=== PATIENT | female | born 1970 | race Hispanic/Latino ===

== ENCOUNTER 2020-09-28 06:29 | Emergency (ER) | payer MEDICAID | END 2020-09-28 07:14 | disposition left against medical advice (07) | LOC: MW.ED 06:29 | DX: Z53.21 Procedure and treatment not carried out due to patient leaving prior to being seen by health care provider (principal) ==

== ENCOUNTER 2020-09-28 07:29 | Emergency (ER) | payer MEDICAID ==
--- NOTE | 2020-09-28 07:58 | EDM.PDOC ---
ED HPI GENERAL MEDICAL PROBLEM - General Chief Complaint: ENT Problem Stated Complaint: BREATHING PROBLEM Time Seen by Provider: 09/28/20 07:54 Source of Information: Reports: Patient, EMS History Limitations: Reports: No Limitations - History of Present Illness INITIAL COMMENTS - FREE TEXT/NARRATIVE: Patient is a 50-year-old female who presents today for sinus pain. Patient s tates for the past 7 to 10 days she has had a pressure-like feeling in both of her face. Patient complains of runny nose as well. Patient denies any difficulty breathing cough nausea vomiting fevers or chills. Patient has tried [id number] medication without relief. Patient denies any chest pain lightheadedness. Patient heart rate was 50 on vital signs but she denies having any complaints. 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 - Related Data Allergies Allergy/AdvReac Type Severity Reaction Status Date / Time No Known Allergies Allergy Verified 09/28/20 07:40 Home Meds: Home Meds Albuterol Sulfate [Albuterol Sulfate HFA] 8.5 gm INH ASDIRECTED 09/28/20 [History] Amoxicillin/Clavulanate K [Augmentin 875-125 MG] 1 tab PO BID 7 Days #14 tablet 09/28/20 [Rx] Ranitidine HCl [Ranitidine] 150 mg PO DAILY 09/28/20 [History] Past Medical History HEENT History: Reports: None Cardiovascular History: Reports: Hypertension Respiratory History: Reports: None Gastrointestinal History: Reports: None Genitourinary History: Reports: None PHARMACY INFORMATICS SPECIALIST History: Reports: None Musculoskeletal History: Reports: None Neurological History: Reports: None Psychiatric History: Reports: None Endocrine/Metabolic History: Reports: None Insulin Pump Model and Pearler: None Hematologic History: Reports: None Immunologic History: Reports: None Oncologic (Cancer) History: Reports: None Dermatologic History: Reports: None - Infectious Disease History Infectious Disease History: Reports: None - Past Surgical History Head Surgeries/Procedures: Reports: None Social & Family History - Caffeine Use Caffeine Use: Reports: None ED ROS GENERAL - Review of Systems Review Of Systems: See Below Constitutional: Reports: No Symptoms HEENT: Reports: No Symptoms, Sinus Problem Respiratory: Reports: No Symptoms Cardiovascular: Reports: No Symptoms Endocrine: Reports: No Symptoms GI/Abdominal: Reports: No Symptoms : Reports: No Symptoms Musculoskeletal: Reports: No Symptoms Skin: Reports: No Symptoms Neurological: Reports: No Symptoms Psychiatric: Reports: No Symptoms Hematologic/Lymphatic: Reports: No Symptoms Immunologic: Reports: No Symptoms ED EXAM, GENERAL - Physical Exam Exam: See Below Exam Limited By: No Limitations General Appearance: Alert, WD/WN Eye Exam: Bilateral Eye: EOMI, PERRL Respiratory/Chest: No Respiratory Distress, Lungs Clear Cardiovascular: Normal Peripheral Pulses, Bradycardia Peripheral Pulses: 2+: Radial (L), Radial (R) GI/Abdominal: Normal Bowel Sounds, Soft, Non-Tender Neurological: Alert, Oriented #1 Interpretation EKG Date: 09/28/20 Time: 07:47 Rhythm: Other (bradycardia) ST-T: Normal Course - Orders/Labs/Meds Orders: Active Orders 24 hr Category Date Time Status EKG 12 Lead [EKG Documentation Completion] [RC] STAT Care 09/28/20 07:46 Ordered Departure - Departure Time of Disposition: 07:59 Disposition: Home, Self-Care 01 Condition: Good Clinical Impression: Sinusitis - Discharge Information *PRESCRIPTION DRUG MONITORING PROGRAM REVIEWED*: Not Applicable *COPY OF PRESCRIPTION DRUG MONITORING REPORT IN PATIENT GRICELDA: Not Applicable Prescriptions: Amoxicillin/Clavulanate K [Augmentin 875-125 MG] 1 tab PO BID 7 Days #14 tablet Instructions: Sinusitis, Adult, [id number] Referrals: Sharita Figueredo [Primary Care Provider] - Forms: ED Department Discharge Additional Instructions: The following information is given to patients seen in the emergency department who are being discharged to home. This information is to outline your options for follow-up care. We provide all patients seen in our emergency department with a follow-up referral. The need for follow-up, as well as the timing and circumstances, are variable depending upon the specifics of your emergency department visit. If you don't have a primary care physician on staff, we will provide you with a referral. We always advise you to contact your personal physician following an emergency department visit to inform them of the circumstance of the visit and for follow-up with them and/or the need for any referrals to a consulting specialist. The emergency department will also refer you to a specialist when appropriate. This referral assures that you have the opportunity for follow-up care with a specialist. All of these measure are taken in an effort to provide you with optimal care, which includes your follow-up. Under all circumstances we always encourage you to contact your private physician who remains a resource for coordinating your care. When calling for follow-up care, please make the office aware that this follow-up is from your recent emergency room visit. If for any reason you are refused follow-up, please contact the [facility] Emergency Department at and asked to speak to the emergency department charge nurse. Please follow up with your primary care physician. If you do not have a primary care physician, see below: [facility] [address] [place] [id number] You were seen today for possible sinus infection. We sent antibiotics to your pharmacy for possible sinusitis. Your heart rate is also slow but you stated this been the problem in the past and you are not having any symptoms from this slow heart rate. Above we have provided the number for cardiology that you can call and make an appointment which he stated you had a hard time trying to follow-up. Any chest pain syncope or other complaints please return to the ED. - My Orders Last 24 Hours: My Active Orders 09/28/20 07:46 EKG 12 Lead [EKG Documentation Completion] [RC] STAT - Assessment/Plan Last 24 Hours: My Active Orders 09/28/20 07:46 EKG 12 Lead [EKG Documentation Completion] [RC] STAT Plan: Patient is a 50-year-old female who presents today for what seems like sinus problems. Patient has had the symptoms for the past 7 to 10 days. We will send patient home with a course of amoxicillin. Patient is also bradycardic vital signs patient denies any symptoms. We obtain EKG just to make sure. Afterwards patient told us that this is normal rate and was told that she was been trying to follow cardiology but not had time. We will refer patient to cardiology you patient return precautions.
== END 2020-09-28 08:32 | disposition home or self-care (01) ==
LOC: MW.ED 07:29
DX: J32.9 Chronic sinusitis, unspecified (principal); I10 Essential (primary) hypertension
CPT/HCPCS: 93005; 99283; 99283-25

== ENCOUNTER 2021-06-30 12:23 | Emergency (ER) | payer MEDICAID ==
[2021-06-30] MEDS ORDERED: Cephalexin 500 MG Cap PO ONE (14:11)
== END 2021-06-30 14:40 | disposition home or self-care (01) ==
LOC: MW.ED 12:23
DX: K04.7 Periapical abscess without sinus (principal); I10 Essential (primary) hypertension
CPT/HCPCS: 99282; A9270

== ENCOUNTER 2021-12-05 11:49 | Emergency (ER) | payer MEDICAID ==
[2021-12-05] MEDS ORDERED: Lidocaine 2% Viscous Solution 15 ML UD PO ONE (12:16)
[2021-12-05] MEDS ORDERED: Orphenadrine 60 MG/2 ML Inj IM ONE (12:16)
[2021-12-05] MEDS ORDERED: Ketorolac 60 MG/2 ML SDV IM ONE (12:16)
[2021-12-05] MEDS ORDERED: Benzocaine 20% Topical Spray UD MUCMEM ONE (12:16)
== END 2021-12-05 13:04 | disposition home or self-care (01) ==
LOC: MW.ED 11:49
DX: M54.41 Lumbago with sciatica, right side (principal); K02.9 Dental caries, unspecified; I10 Essential (primary) hypertension; Z79.899 Other long term (current) drug therapy
CPT/HCPCS: 96372; 99283; A9270; J1885; J2360

== ENCOUNTER 2022-03-28 11:10 | Emergency (ER) | payer MEDICAID ==
[2022-03-28] MEDS ORDERED: Ketorolac 60 MG/2 ML SDV IM ONE (13:29)
== END 2022-03-28 13:59 | disposition home or self-care (01) ==
LOC: MW.ED 11:10
DX: M25.511 Pain in right shoulder (principal); I10 Essential (primary) hypertension; Z79.899 Other long term (current) drug therapy
CPT/HCPCS: 73030; 93005; 96372; 99283; J1885

== ENCOUNTER 2022-04-25 17:32 | Emergency (ER) | payer MEDICAID ==
[2022-04-25] MEDS ORDERED: Orphenadrine 60 MG/2 ML Inj IM ONE (18:52)
[2022-04-25] MEDS ORDERED: predniSONE 20 MG Tab PO ONE (18:52)
[2022-04-25] MEDS ORDERED: Diazepam 5 MG Tab PO ONE (18:53)
== END 2022-04-25 19:12 | disposition home or self-care (01) ==
LOC: MW.ED 17:32
DX: M54.10 Radiculopathy, site unspecified (principal); M54.2 Cervicalgia; I10 Essential (primary) hypertension; Z79.899 Other long term (current) drug therapy
CPT/HCPCS: 96372; 99283; A9270; J2360

== ENCOUNTER 2022-06-26 10:12 | Emergency (ER) | payer MEDICAID ==
[2022-06-26] MEDS ORDERED: Losartan 50 MG Tab PO ONE (10:32)
[2022-06-26] MEDS ORDERED: Metoclopramide 10 MG/2 ML SDV IVPUSH ONE (10:32)
[2022-06-26] MEDS ORDERED: Ondansetron 4 MG/2 ML SDV IVPUSH ONE (10:32)
[2022-06-26] MEDS ORDERED: diphenhydrAMINE 50 MG/ML SDV IVPUSH ONE (10:32)
[2022-06-26] MEDS ORDERED: Ketorolac 30 MG/ML SDV IVPUSH ONE (10:32)
[2022-06-26] MEDS ORDERED: Sodium Chloride 0.9% 1,000 ML IV SCH (10:45)
[2022-06-26 11:19] LABS: CORONAVIRUS COVID-19 NAA NEGATIVE (NEGATIVE); INFLUENZA A NAA NEGATIVE (NEGATIVE); INFLUENZA B NAA NEGATIVE (NEGATIVE); RESPIRATORY SYNCYTIAL VIR NAA NEGATIVE (NEGATIVE)
[2022-06-26 11:30] LABS: CARBON DIOXIDE,CO2 27.1 mmol/L (21.0-32.0); POTASSIUM,K 3.3 mmol/L (3.5-5.1)
== END 2022-06-26 12:03 | disposition home or self-care (01) ==
LOC: MW.ED 10:12
DX: J32.9 Chronic sinusitis, unspecified (principal); I10 Essential (primary) hypertension; Z79.899 Other long term (current) drug therapy; Z20.822 Contact with and (suspected) exposure to COVID-19
CPT/HCPCS: 0241U; 36415; 71045; 80053; 85025; 93005; 96361; 96374; 96375; 99284; A9270; J1200; J1885; J2405; J2765; J7030; 93010

== ENCOUNTER 2022-10-21 13:48 | Emergency (ER) | payer MEDICAID ==
[2022-10-21] MEDS ORDERED: Ondansetron 4 MG Tab.DIS PO ONE (14:19)
[2022-10-21] MEDS ORDERED: Acetaminophen/oxyCODONE 325-5 MG Tab PO ONE (14:19)
[2022-10-21 14:38] LABS: APPEARANCE,URINE CLEAR; BILIRUBIN,URINE NEGATIVE (NEGATIVE); COLOR,URINE YELLOW; GLUCOSE,URINE NEGATIVE (NEGATIVE); KETONES,URINE NEGATIVE (NEGATIVE); LEUKOCYTE ESTERASE,URINE NEGATIVE (NEGATIVE); NITRITE,URINE NEGATIVE (NEGATIVE); OCCULT BLOOD,URINE MODERATE (NEGATIVE); PROTEIN,URINE NEGATIVE (NEGATIVE); UROBILINOGEN,URINE 0.2 EU/dL (<2.0)
[2022-10-21 14:46] LABS: BACTERIA,URINE RARE (NEGATIVE); EPITHELIAL CELLS,URINE FEW (NONE-FEW); WBC,URINE 0-2 (0-5/HPF)
== END 2022-10-21 15:56 | disposition home or self-care (01) ==
LOC: MW.ED 13:48
DX: M54.42 Lumbago with sciatica, left side (principal); I10 Essential (primary) hypertension; J45.909 Unspecified asthma, uncomplicated; K21.9 Gastro-esophageal reflux disease without esophagitis; Z79.899 Other long term (current) drug therapy
CPT/HCPCS: 72131; 81001; 99284; A9270; 99283

== ENCOUNTER 2022-11-09 14:04 | Emergency (ER) | payer MEDICAID ==
[2022-11-09] MEDS ORDERED: Cyclobenzaprine 10 MG Tab PO ONE (14:59)
[2022-11-09] MEDS ORDERED: Ketorolac 60 MG/2 ML SDV IM ONE (14:59)
[2022-11-09] MEDS ORDERED: Lidocaine 4% 1 each Patch TOP PRN (15:04)
== END 2022-11-09 15:45 | disposition home or self-care (01) ==
LOC: MW.ED 14:04
DX: M54.32 Sciatica, left side (principal); I10 Essential (primary) hypertension; J45.909 Unspecified asthma, uncomplicated; K21.9 Gastro-esophageal reflux disease without esophagitis; Z79.899 Other long term (current) drug therapy
CPT/HCPCS: 96372; 99283; A9270; J1885

== ENCOUNTER 2022-11-21 09:40 | Day surgery (SDC) | payer MEDICAID ==
[~2022-11-21 09:40] MED LIST: Lactated Ringers 1,000 ML IV SCH; Sodium Chloride 0.9% 10 ML Syringe FLUSH PRN; Sodium Chloride 0.9% 2.5 ML Syringe FLUSH PRN; Sodium Chloride 0.9% 20 ML SDV IV PRN
[2022-11-21] MEDS ORDERED: propofoL 50 ML ONE (10:12)
[2022-11-21] MEDS ORDERED: Lidocaine 2% 5 ML SDV ONE (10:16)
[2022-11-21] MEDS ORDERED: fentaNYL 100 MCG/2 ML SDV ONE (10:16)
[2022-11-21] MEDS ORDERED: Propofol 200 MG/20 ML SDV ONE (11:37)
== END 2022-11-21 12:40 | disposition home or self-care (01) ==
LOC: MW.SDS 09:40
PROVIDERS: ATTEND Surgery
DX: K58.1 Irritable bowel syndrome with constipation (principal); K21.9 Gastro-esophageal reflux disease without esophagitis; K63.5 Polyp of colon; K29.50 Unspecified chronic gastritis without bleeding; J45.901 Unspecified asthma with (acute) exacerbation; I10 Essential (primary) hypertension; E55.9 Vitamin D deficiency, unspecified; Z90.49 Acquired absence of other specified parts of digestive tract; Z79.899 Other long term (current) drug therapy; Z87.891 Personal history of nicotine dependence
CPT/HCPCS: 43239; 45380; J2704; J3010; J7120; 00813; J3490

== ENCOUNTER 2023-01-24 01:47 | Emergency (ER) | payer MEDICAID | END 2023-01-24 02:06 | LOC: MW.ED 01:47 | DX: I10 Essential (primary) hypertension (principal); Z02.89 Encounter for other administrative examinations | CPT/HCPCS: 99282; 99283 ==

== ENCOUNTER 2023-03-21 08:35 | Emergency (ER) | payer OTHER, MEDICAID | END 2023-03-21 09:18 | disposition home or self-care (01) | LOC: MW.ED 08:35 | DX: Z04.1 Encounter for examination and observation following transport accident (principal); I10 Essential (primary) hypertension; Z79.899 Other long term (current) drug therapy | CPT/HCPCS: 99282; 99284 ==

== ENCOUNTER 2023-04-29 11:51 | Emergency (ER) | payer SELFPAY ==
[2023-04-29] MEDS ORDERED: Sodium Chloride 0.9% 10 ML Syringe FLUSH PRN (11:54)
[2023-04-29] MEDS ORDERED: Sodium Chloride 0.9% 2.5 ML Syringe FLUSH PRN (11:54)
[2023-04-29] MEDS ORDERED: Aspirin 81 MG Tab.Chew PO ONE (12:01)
[2023-04-29] MEDS ORDERED: Sodium Chloride 0.9% 1,000 ML IV ONE (12:01)
[2023-04-29 12:06] LABS: BASOPHILS ABSOLUTE AUTO 0.05 K/uL (0.00-0.20); EOSINOPHILS ABSOLUTE AUTO 0.32 K/uL (0.00-0.45); EOSINOPHILS PERCENT AUTO 6.5 % (0.0-6.0); HEMATOCRIT 43.5 % (37.0-47.0); HEMOGLOBIN 14.7 g/dL (12.0-16.0); IMMATURE GRAN ABSOLUTE AUTO 0.01 K/uL (0.00-0.05); IMMATURE GRAN PERCENT AUTO 0.2 % (0.0-0.4); LYMPHOCYTES ABSOLUTE AUTO 1.92 K/uL (1.00-4.80); LYMPHOCYTES PERCENT AUTO 38.9 % (24.0-44.0); MEAN CORPUSCULAR HEMOGLOBIN 31.8 pg (28.0-32.0); MEAN CORPUSCULAR HGB CONC 33.8 g/dL (32.0-36.0); MEAN CORPUSCULAR VOLUME 94.2 fL (83.0-99.0); MEAN PLATELET VOLUME 8.8 fL (9.4-12.3); MONOCYTES PERCENT AUTO 8.1 % (0.0-8.0); NEUTROPHILS ABSOLUTE AUTO 2.23 K/uL (1.80-7.70); NEUTROPHILS PERCENT AUTO 45.3 % (41.0-71.0); PLATELET COUNT,PLT 226 K/uL (150-400); RED BLOOD CELL COUNT 4.62 M/uL (4.10-5.30); WHITE BLOOD CELL COUNT,WBC 4.93 K/uL (3.9-11.3)
[2023-04-29 12:54] LABS: CORONAVIRUS COVID-19 NAA NEGATIVE (NEGATIVE); INFLUENZA A NAA NEGATIVE (NEGATIVE); INFLUENZA B NAA NEGATIVE (NEGATIVE); RESPIRATORY SYNCYTIAL VIR NAA NEGATIVE (NEGATIVE)
[2023-04-29 12:57] LABS: A/G RATIO 1.1 (0.9-1.6); ALBUMIN 4.1 g/dL (3.4-5.0); BILIRUBIN TOTAL 0.3 mg/dL (0.2-1.0); CALCIUM 9.3 mg/dL (8.5-10.1); CARBON DIOXIDE,CO2 28.5 mmol/L (21.0-32.0); CREATININE 1.1 mg/dL (0.6-1.0); EST CRCL DRUG DOSING (CG) 54.73 mL/min; POTASSIUM,K 3.7 mmol/L (3.5-5.1); PROTEIN TOTAL,TP 7.7 g/dL (6.4-8.2)
[2023-04-29] MEDS ORDERED: Ketorolac 30 MG/ML SDV IVPUSH ONE (13:12)
== END 2023-04-29 13:37 | disposition home or self-care (01) ==
LOC: MW.ED 11:51
DX: R07.89 Other chest pain (principal); J18.9 Pneumonia, unspecified organism; M54.42 Lumbago with sciatica, left side; I10 Essential (primary) hypertension; Z79.899 Other long term (current) drug therapy; Z20.822 Contact with and (suspected) exposure to COVID-19
CPT/HCPCS: 0241U; 36415; 71045; 80053; 83880; 84484; 85025; 85379; 93005; 96361; 96374; 99285; A9270; J1885; J3490; J7030; 93010; 99284

== ENCOUNTER 2023-05-02 19:25 | Emergency (ER) | payer SELFPAY ==
[2023-05-02] MEDS ORDERED: Sodium Chloride 0.9% 2.5 ML Syringe FLUSH PRN (19:37)
[2023-05-02] MEDS ORDERED: Sodium Chloride 0.9% 10 ML Syringe FLUSH PRN (19:37)
[2023-05-02 19:57] LABS: BASOPHILS ABSOLUTE AUTO 0.03 K/uL (0.00-0.20); BASOPHILS PERCENT AUTO 0.4 % (0.0-1.0); EOSINOPHILS ABSOLUTE AUTO 0.13 K/uL (0.00-0.45); EOSINOPHILS PERCENT AUTO 1.8 % (0.0-6.0); HEMATOCRIT 40.4 % (37.0-47.0); HEMOGLOBIN 13.7 g/dL (12.0-16.0); IMMATURE GRAN ABSOLUTE AUTO 0.03 K/uL (0.00-0.05); IMMATURE GRAN PERCENT AUTO 0.4 % (0.0-0.4); LYMPHOCYTES ABSOLUTE AUTO 0.66 K/uL (1.00-4.80); LYMPHOCYTES PERCENT AUTO 9.1 % (24.0-44.0); MEAN CORPUSCULAR HEMOGLOBIN 31.4 pg (28.0-32.0); MEAN CORPUSCULAR HGB CONC 33.9 g/dL (32.0-36.0); MEAN CORPUSCULAR VOLUME 92.4 fL (83.0-99.0); MEAN PLATELET VOLUME 8.8 fL (9.4-12.3); MONOCYTES ABSOLUTE AUTO 0.37 K/uL (0.00-0.80); MONOCYTES PERCENT AUTO 5.1 % (0.0-8.0); NEUTROPHILS ABSOLUTE AUTO 6.05 K/uL (1.80-7.70); NEUTROPHILS PERCENT AUTO 83.2 % (41.0-71.0); PLATELET COUNT,PLT 186 K/uL (150-400); RED BLOOD CELL COUNT 4.37 M/uL (4.10-5.30); WHITE BLOOD CELL COUNT,WBC 7.27 K/uL (3.9-11.3)
[2023-05-02] MEDS ORDERED: Acetaminophen 325 MG Tab PO STA (20:05)
[2023-05-02 20:25] LABS: A/G RATIO 1.1 (0.9-1.6); ALBUMIN 3.9 g/dL (3.4-5.0); BILIRUBIN TOTAL 0.5 mg/dL (0.2-1.0); CALCIUM 8.9 mg/dL (8.5-10.1); CREATININE 0.9 mg/dL (0.6-1.0); EST CRCL DRUG DOSING (CG) 69.49 mL/min; POTASSIUM,K 3.6 mmol/L (3.5-5.1); PROTEIN TOTAL,TP 7.4 g/dL (6.4-8.2)
[2023-05-02] MEDS ORDERED: Albuterol/Ipratropium 3.0-0.5 MG/3 ML Neb Soln NEB ONE (21:50)
[2023-05-02] MEDS ORDERED: Doxycycline 100 MG Cap PO ONE (22:16)
== END 2023-05-02 22:31 | disposition home or self-care (01) ==
LOC: MW.ED 19:25
DX: R05.9 Cough, unspecified (principal); Z79.899 Other long term (current) drug therapy
CPT/HCPCS: 36415; 71046; 80053; 83880; 84484; 85025; 99285; A9270; J3490; 93010; 99283; J7620-GY

== ENCOUNTER 2023-10-09 00:52 | Emergency (ER) | payer SELFPAY ==
[2023-10-09] MEDS: Ketorolac 30 MG/ML SDV IM ONE (01:48)
[2023-10-09] MEDS: Lidocaine 4% 1 each Patch TOP STA (01:48)
[2023-10-09] MEDS: Metoclopramide 10 MG/2 ML SDV IM ONE (01:49)
== END 2023-10-09 02:51 | disposition home or self-care (01) ==
LOC: MW.ED 00:52
DX: M25.552 Pain in left hip (principal); R51.9 Headache, unspecified; I10 Essential (primary) hypertension; F17.210 Nicotine dependence, cigarettes, uncomplicated; Z79.899 Other long term (current) drug therapy
CPT/HCPCS: 96372; 99283; A9270; J1885; J2765

== ENCOUNTER 2023-10-19 07:49 | Emergency (ER) | payer SELFPAY ==
[2023-10-19 09:13] LABS: BASOPHILS ABSOLUTE AUTO 0.04 K/uL (0.00-0.20); BASOPHILS PERCENT AUTO 0.8 % (0.0-1.0); EOSINOPHILS PERCENT AUTO 8.4 % (0.0-6.0); HEMATOCRIT 42.4 % (37.0-47.0); HEMOGLOBIN 14.2 g/dL (12.0-16.0); IMMATURE GRAN ABSOLUTE AUTO 0.01 K/uL (0.00-0.05); IMMATURE GRAN PERCENT AUTO 0.2 % (0.0-0.4); LYMPHOCYTES ABSOLUTE AUTO 1.66 K/uL (1.00-4.80); LYMPHOCYTES PERCENT AUTO 34.9 % (24.0-44.0); MEAN CORPUSCULAR HEMOGLOBIN 31.2 pg (28.0-32.0); MEAN CORPUSCULAR HGB CONC 33.5 g/dL (32.0-36.0); MEAN CORPUSCULAR VOLUME 93.2 fL (83.0-99.0); MEAN PLATELET VOLUME 8.7 fL (9.4-12.3); MONOCYTES ABSOLUTE AUTO 0.48 K/uL (0.00-0.80); MONOCYTES PERCENT AUTO 10.1 % (0.0-8.0); NEUTROPHILS ABSOLUTE AUTO 2.16 K/uL (1.80-7.70); NEUTROPHILS PERCENT AUTO 45.6 % (41.0-71.0); PLATELET COUNT,PLT 213 K/uL (150-400); RED BLOOD CELL COUNT 4.55 M/uL (4.10-5.30); WHITE BLOOD CELL COUNT,WBC 4.75 K/uL (3.9-11.3)
[2023-10-19] MEDS: Sodium Chloride 0.9% 1,000 ML IV STA (09:13)
[2023-10-19] MEDS: Lidocaine 4% 1 each Patch TOP ONE (09:14)
[2023-10-19] MEDS: Ibuprofen 600 MG Tab PO ONE (09:14)
[2023-10-19] MEDS: Sodium Chloride 0.9% 10 ML Syringe FLUSH PRN (09:15)
[2023-10-19] MEDS: Sodium Chloride 0.9% 2.5 ML Syringe FLUSH PRN (09:15)
[2023-10-19] MEDS: Acetaminophen 325 MG Tab PO ONE (09:15)
[2023-10-19 09:40] LABS: ALBUMIN 3.5 g/dL (3.4-5.0); BILIRUBIN TOTAL 0.4 mg/dL (0.2-1.0); CARBON DIOXIDE,CO2 28.5 mmol/L (21.0-32.0); CREATININE 0.8 mg/dL (0.6-1.0); EST CRCL DRUG DOSING (CG) 77.27 mL/min; POTASSIUM,K 3.8 mmol/L (3.5-5.1)
== END 2023-10-19 11:41 | disposition home or self-care (01) ==
LOC: MW.ED 07:49
DX: R51.9 Headache, unspecified (principal); R06.02 Shortness of breath; I10 Essential (primary) hypertension; F17.210 Nicotine dependence, cigarettes, uncomplicated; Z79.899 Other long term (current) drug therapy; Z75.8 Other problems related to medical facilities and other health care
CPT/HCPCS: 36415; 71046; 80053; 84484; 85025; 99285; A9270; J3490; J7030; 93005; 93010; 99283

== ENCOUNTER 2024-08-17 17:44 | Emergency (ER) | payer BC ==
[2024-08-17 19:50] LABS: APPEARANCE,URINE CLEAR; COLOR,URINE YELLOW; GLUCOSE,URINE NEGATIVE (NEGATIVE); KETONES,URINE 15 mg/dL (NEGATIVE); LEUKOCYTE ESTERASE,URINE NEGATIVE (NEGATIVE); NITRITE,URINE NEGATIVE (NEGATIVE); OCCULT BLOOD,URINE NEGATIVE (NEGATIVE); PH,URINE 5.5 (5.0-8.0); PROTEIN,URINE NEGATIVE (NEGATIVE)
[2024-08-17 19:57] LABS: BILIRUBIN,URINE SMALL (NEGATIVE)
[2024-08-17 20:07] LABS: A/G RATIO 1.2 (0.9-1.6); ALBUMIN 3.8 g/dL (3.4-5.0); BASOPHILS ABSOLUTE AUTO 0.04 K/uL (0.00-0.20); BASOPHILS PERCENT AUTO 0.9 % (0.0-1.0); BILIRUBIN TOTAL 0.3 mg/dL (0.2-1.0); CARBON DIOXIDE,CO2 28.8 mmol/L (21.0-32.0); CREATININE 1.1 mg/dL (0.6-1.0); EOSINOPHILS ABSOLUTE AUTO 0.25 K/uL (0.00-0.45); EOSINOPHILS PERCENT AUTO 5.4 % (0.0-6.0); EST CRCL DRUG DOSING (CG) 53.46 mL/min; HEMATOCRIT 40.9 % (37.0-47.0); HEMOGLOBIN 13.3 g/dL (12.0-16.0); IMMATURE GRAN ABSOLUTE AUTO 0.01 K/uL (0.00-0.05); IMMATURE GRAN PERCENT AUTO 0.2 % (0.0-0.4); LYMPHOCYTES ABSOLUTE AUTO 1.82 K/uL (1.00-4.80); LYMPHOCYTES PERCENT AUTO 39.1 % (24.0-44.0); MEAN CORPUSCULAR HEMOGLOBIN 31.2 pg (28.0-32.0); MEAN CORPUSCULAR HGB CONC 32.5 g/dL (32.0-36.0); MEAN PLATELET VOLUME 8.8 fL (9.4-12.3); MONOCYTES PERCENT AUTO 8.6 % (0.0-8.0); NEUTROPHILS ABSOLUTE AUTO 2.14 K/uL (1.80-7.70); NEUTROPHILS PERCENT AUTO 45.8 % (41.0-71.0); PLATELET COUNT,PLT 217 K/uL (150-400); POTASSIUM,K 4.3 mmol/L (3.5-5.1); PROTEIN TOTAL,TP 6.9 g/dL (6.4-8.2); RED BLOOD CELL COUNT 4.26 M/uL (4.10-5.30); WHITE BLOOD CELL COUNT,WBC 4.66 K/uL (3.9-11.3)
[2024-08-17] MEDS: Morphine 4 MG/ML Syringe IVPUSH ONE (20:22)
[2024-08-17] MEDS: oxyCODONE 5 MG Tab PO ONE (20:22)
[2024-08-17] MEDS: Acetaminophen 325 MG Tab PO ONE (20:23)
== END 2024-08-17 21:00 | disposition home or self-care (01) ==
LOC: MW.ED 17:44
DX: R10.9 Unspecified abdominal pain (principal); Z79.899 Other long term (current) drug therapy
CPT/HCPCS: 36415; 80053; 81003; 85025; 99284; A9270; 99282

== ENCOUNTER 2025-02-19 15:35 | Emergency (ER) | payer SELFPAY ==
[2025-02-19 16:03] LABS: BASOPHILS ABSOLUTE AUTO 0.04 K/uL (0.00-0.20); BASOPHILS PERCENT AUTO 1.0 % (0.0-1.0); EOSINOPHILS ABSOLUTE AUTO 0.19 K/uL (0.00-0.45); EOSINOPHILS PERCENT AUTO 5.0 % (0.0-6.0); IMMATURE GRAN ABSOLUTE AUTO 0.00 K/uL (0.00-0.05); IMMATURE GRAN PERCENT AUTO 0.0 % (0.0-0.4); LYMPHOCYTES ABSOLUTE AUTO 1.77 K/uL (1.00-4.80); LYMPHOCYTES PERCENT AUTO 46.5 % (24.0-44.0); MEAN PLATELET VOLUME 9.3 fL (9.4-12.3); MONOCYTES ABSOLUTE AUTO 0.40 K/uL (0.00-0.80); MONOCYTES PERCENT AUTO 10.5 % (0.0-8.0); NEUTROPHILS ABSOLUTE AUTO 1.41 K/uL (1.80-7.70); NEUTROPHILS PERCENT AUTO 37.0 % (41.0-71.0); NRBC ABSOLUTE 0.00 K/uL (0.00-0.02); NRBC PERCENT 0.0 /100WBC (0.0-0.2); PLATELET COUNT,PLT 196 K/uL (150-400); RED BLOOD CELL COUNT 3.88 M/uL (4.10-5.30); WHITE BLOOD CELL COUNT,WBC 3.81 K/uL (3.9-11.3)
[2025-02-19 16:36] LABS: A/G RATIO 1.2 (0.9-1.6); ALANINE AMINOTRANSFERASE,ALT 27.0 IU/L (14-63); ASPARTATE AMNIOTRANSFERASE,AST 27.0 IU/L (15-37); BILIRUBIN TOTAL 0.4 mg/dL (0.2-1.0); BLOOD UREA NITROGEN,BUN 8.0 mg/dL (7.0-18.0); CARBON DIOXIDE,CO2 24.3 mmol/L (21.0-32.0); CHLORIDE,CL 113.0 mmol/L (98-107); CREATININE 0.7 mg/dL (0.6-1.0); EST CRCL DRUG DOSING (CG) 84.01 mL/min; ESTIMATED GFR 101.0 mL/min (>60); GLUCOSE RANDOM 94.0 mg/dL (74-106); POTASSIUM,K 3.1 mmol/L (3.5-5.1); PROTEIN TOTAL,TP 6.3 g/dL (6.4-8.2); SODIUM,NA 150.0 mmol/L (136-145)
[2025-02-19 16:37] LABS: ETHANOL BLOOD MEDICAL 390.0 mg/dL
[2025-02-19] MEDS: Potassium Chloride 20 MEQ Tab.ER PO ONE (17:23)
[2025-02-19 17:51] LABS: APPEARANCE,URINE CLEAR; GLUCOSE,URINE NEGATIVE (NEGATIVE); OCCULT BLOOD,URINE NEGATIVE (NEGATIVE)
[2025-02-19 18:01] LABS: AMPHETAMINES SCREEN, URINE NEGATIVE (CUTOFF=500); BUPRENORPHINE SCREEN,URINE NEGATIVE (CUTOFF=10); METHADONE SCREEN, URINE NEGATIVE (CUTOFF=200); METHAMPHETAMINES SCREEN, URINE NEGATIVE (CUTOFF=500); OXYCODONE SCREEN,URINE NEGATIVE (CUT0FF=100); PCP SCREEN,URINE NEGATIVE (CUTOFF=25); THC SCREEN,URINE 20 NG/ML NEGATIVE (CUTOFF=50)
[2025-02-19 18:02] LABS: EPITHELIAL CELLS,URINE FEW (NONE-FEW)
== END 2025-02-19 20:42 | disposition home or self-care (01) ==
LOC: MERGE 15:35 → MW.ED 15:35
DX: F10.129 Alcohol abuse with intoxication, unspecified (principal); E86.0 Dehydration; Z75.3 Unavailability and inaccessibility of health-care facilities; Y90.8 Blood alcohol level of 240 mg/100 ml or more
CPT/HCPCS: 36415; 70450; 71045; 80053; 80305; 80307; 81001; 82375; 83735; 84484; 85025; 96360; 96361; 99285; A9270; J7030; 99283